=== PATIENT | male | born 1940 | race Caucasian/White ===

== ENCOUNTER 2023-04-01 18:41 | Inpatient (IN) | payer OTHER ==
[~2023-04-01] VITALS: Ht 175.3 cm; Wt 60.2 kg
[2023-04-01] MEDS ORDERED: SODIUM CHLORIDE 0.9% 1,000 ML IV ONE (19:15)
[2023-04-01] MEDS ORDERED: ONDANSETRON HCL 4 MG/2 ML VIAL IV ONE (19:15)
[2023-04-01] MEDS ORDERED: IOHEXOL 300 MG/ML 100ML BOTTLE IJ ONE (19:24)
[2023-04-01 19:43] LABS: Basophils # (auto) 0 10 ^3/uL (0-0.2); Basophils % (auto) 0.2 % (0.0-2.0); Eosinophils # (auto) 0.1 10 ^3/uL (0-0.8); Eosinophils % (auto) 1.1 % (0.0-7.0); Hematocrit 31.4 % (41.0-53.0); Hemoglobin 10.5 g/dL (13.5-17.5); Lymphocytes # (auto) 2.7 10 ^3/uL (0.4-5.4); Mean Corpuscular Hemoglobin 31.9 pg (28.0-32.0); Mean Corpuscular Hgb Conc. 33.5 g/dL (32.0-36.0); Mean Corpuscular Volume 95.3 fL (80.0-100.0); Monocytes # (auto) 0.5 10 ^3/uL (0-1.3); Monocytes % (auto) 5.2 % (0.0-12.0); Neutrophils # (auto) 5.6 10 ^3/uL (1.6-8.6); Neutrophils % (auto) 63.5 % (37.0-80.0); Red Blood Cells 3.29 10^6/uL (4.5-5.90); Red Cell Distribution Width 13.1 % (11.8-14.3); White Blood Cell 8.9 10^3/uL (4.4-10.8)
[2023-04-01 20:02] LABS: Albumin 2.7 g/dL (3.4-5.0); BUN/Creatinine Ratio 14.3 (10.0-20.0); Calcium 8.7 mg/dL (8.5-10.1); Potassium 5.2 mmol/L (3.5-5.1)
[2023-04-01 20:14] LABS: Bilirubin, Total 0.8 mg/dL (0.2-1.0); Total Protein 7.8 g/dL (6.4-8.2)
[2023-04-02] MEDS ORDERED: ONDANSETRON HCL 4 MG/2 ML VIAL IV ONE (01:00)
[2023-04-02] MEDS ORDERED: DOCUSATE SOD 100 MG CAP PO PRN (01:00)
[2023-04-02] MEDS ORDERED: HYDROcodone-ACET 5/325MG TAB PO PRN (01:00)
[2023-04-02] MEDS ORDERED: NITROGLYCERIN 0.4 MG SL TAB SL PRN (05:15)
[2023-04-02] MEDS ORDERED: MORPHINE SULFATE INJ 2 MG/ml SYRG IV PRN (05:15)
[2023-04-02] MEDS ORDERED: SODIUM ZIRCONIUM CYCL 10 GM PAK PO ONE ×2 (06:00→06:15)
[2023-04-02] MEDS: ONDANSETRON HCL 4 MG/2 ML VIAL IV PRN ×2 (06:24→12:44)
[2023-04-02] MEDS: ACETAMINOPHEN 325 MG TAB PO PRN (06:25)
[2023-04-02 06:43] LABS: Basophils # (auto) 0 10 ^3/uL (0-0.2); Basophils % (auto) 0.3 % (0.0-2.0); Eosinophils # (auto) 0 10 ^3/uL (0-0.8); Eosinophils % (auto) 0.4 % (0.0-7.0); Hematocrit 30.4 % (41.0-53.0); Hemoglobin 10.2 g/dL (13.5-17.5); Lymphocytes % (auto) 27.4 % (10.0-50.0); Mean Corpuscular Hemoglobin 31.9 pg (28.0-32.0); Mean Corpuscular Hgb Conc. 33.6 g/dL (32.0-36.0); Monocytes # (auto) 0.7 10 ^3/uL (0-1.3); Monocytes % (auto) 6.4 % (0.0-12.0); Neutrophils # (auto) 7.1 10 ^3/uL (1.6-8.6); Neutrophils % (auto) 65.5 % (37.0-80.0); Nucleated Red Blood Cells % 0.1 %; Red Cell Distribution Width 13.2 % (11.8-14.3); White Blood Cell 10.8 10^3/uL (4.4-10.8)
[2023-04-02 07:16] LABS: Potassium 4.4 mmol/L (3.5-5.1)
[2023-04-02 07:30] LABS: Albumin 2.8 g/dL (3.4-5.0); BUN/Creatinine Ratio 14.5 (10.0-20.0); Bilirubin, Total 0.8 mg/dL (0.2-1.0); Total Protein 8.1 g/dL (6.4-8.2)
[2023-04-02 08:03] LABS: Urine Bacteria MOD /hpf (None Seen); Urine Blood 2+ /uL (Negative); Urine Specific Gravity 1.028 (1.001-1.035); Urine WBC 2743 /hpf (0 - 3); Urine WBC Clumps PRESENT /hpf (None Seen)
[2023-04-02] MEDS ORDERED: CEFEPIME 1GM/ 50ML 50 ML IV ONE (12:00)
[2023-04-02] MEDS ORDERED: DEXTROSE (50%) 50ML SYRG IV PRN (12:30)
[2023-04-02] MEDS: ACCU-CHEK COMFORT CURVE STRIP VI SCH ×2 (18:30→23:20)
[2023-04-02] MEDS: InsuLIN REG 1unit/0.01ml Soln (100units/ml) SC SCH ×2 (18:30→23:27)
[2023-04-02 21:03] VITALS: BP 140/66
[2023-04-02] MEDS: CEFEPIME 1GM/ 50ML 50 ML IV SCH (23:05)
[2023-04-03 02:02] VITALS: BP 140/66
[2023-04-03 05:00] VITALS: BP 133/70
[2023-04-03] MEDS: ACCU-CHEK COMFORT CURVE STRIP VI SCH ×3 (05:18→18:00)
[2023-04-03] MEDS: InsuLIN REG 1unit/0.01ml Soln (100units/ml) SC SCH ×3 (05:21→18:00)
[2023-04-03 06:36] LABS: Basophils # (auto) 0 10 ^3/uL (0-0.2); Basophils % (auto) 0.1 % (0.0-2.0); Eosinophils # (auto) 0 10 ^3/uL (0-0.8); Eosinophils % (auto) 0.1 % (0.0-7.0); Hematocrit 30.5 % (41.0-53.0); Hemoglobin 10.3 g/dL (13.5-17.5); Lymphocytes # (auto) 2.4 10 ^3/uL (0.4-5.4); Lymphocytes % (auto) 20.3 % (10.0-50.0); Mean Corpuscular Hemoglobin 31.7 pg (28.0-32.0); Mean Corpuscular Hgb Conc. 33.7 g/dL (32.0-36.0); Mean Corpuscular Volume 94.3 fL (80.0-100.0); Monocytes # (auto) 0.6 10 ^3/uL (0-1.3); Monocytes % (auto) 5.4 % (0.0-12.0); Neutrophils # (auto) 8.8 10 ^3/uL (1.6-8.6); Neutrophils % (auto) 74.1 % (37.0-80.0); Nucleated Red Blood Cells % 0.1 %; Red Blood Cells 3.24 10^6/uL (4.5-5.90); Red Cell Distribution Width 13.3 % (11.8-14.3); White Blood Cell 11.9 10^3/uL (4.4-10.8)
[2023-04-03 07:39] LABS: Albumin 2.7 g/dL (3.4-5.0); Calcium 8.1 mg/dL (8.5-10.1); Potassium 4.3 mmol/L (3.5-5.1)
[2023-04-03 07:42] LABS: BUN/Creatinine Ratio 17.3 (10.0-20.0); Bilirubin, Total 0.7 mg/dL (0.2-1.0); Total Protein 7.6 g/dL (6.4-8.2)
[2023-04-03] MEDS ORDERED: AMLO1TAB22 PO (08:49)
[2023-04-03 09:00] VITALS: BP 126/65
[2023-04-03] MEDS: CEFEPIME 1GM/ 50ML 50 ML IV SCH ×2 (09:48→22:07)
[2023-04-03] MEDS ORDERED: GLIP10TA9 PO (12:16)
[2023-04-03] MEDS ORDERED: B-COCAP34 OR (12:16)
[2023-04-03] MEDS ORDERED: TEMA30CA PO (12:16)
[2023-04-03] MEDS ORDERED: LISI40TA16 PO (12:16)
[2023-04-03] MEDS ORDERED: FINA5TAB4 PO (12:16)
[2023-04-03] MEDS ORDERED: HYDR-4902 PO (12:16)
[2023-04-03] MEDS ORDERED: SIMV40TA18 PO (12:16)
[2023-04-03 13:00] VITALS: BP 91/58
[2023-04-03 17:00] VITALS: BP 150/46
[2023-04-03 22:00] VITALS: BP 120/74
[2023-04-04] MEDS: ACCU-CHEK COMFORT CURVE STRIP VI SCH ×5 (00:32→23:00)
[2023-04-04] MEDS: ACETAMINOPHEN 325 MG TAB PO PRN (04:18)
[2023-04-04 05:00] VITALS: BP 136/61
[2023-04-04] MEDS: InsuLIN REG 1unit/0.01ml Soln (100units/ml) SC SCH ×5 (06:00→22:00)
[2023-04-04 06:39] LABS: INR 1.25 (0.9-1.15); Partial Thromboplastin Time 30.2 SEC (24.5-34.5)
[2023-04-04] MEDS ORDERED: PROPOFOL 10 MG/ML 20 ML IV ONE (08:04)
[2023-04-04] MEDS ORDERED: LIDOCAINE 2% (LOCAL ANESTH.) PF 5ml SDV ONE (08:05)
[2023-04-04 09:00] VITALS: BP 133/59
[2023-04-04] MEDS: PANTOPRAZOLE 40 MG/10 ML VIAL INJ IV SCH ×2 (09:20→23:00)
[2023-04-04] MEDS: CEFEPIME 1GM/ 50ML 50 ML IV SCH ×2 (09:23→23:00)
[2023-04-04] MEDS ORDERED: LACTULOSE 20Gm/30ML SOLN PO SCH (10:00)
[2023-04-04] MEDS: SUCRALFATE 1 GM/10 ML ORAL SUSP PO SCH ×3 (11:34→23:00)
[2023-04-04 13:00] VITALS: BP 137/61
[2023-04-04] MEDS: METOCLOPRAMIDE HCL 5MG/ml INJ 2ml VIAL IV SCH ×2 (13:41→23:00)
[2023-04-04] MEDS ORDERED: DEXTROSE (50%) 50ML SYRG IV PRN (15:00)
[2023-04-04] MEDS ORDERED: FINA5TAB4 PO (15:08)
[2023-04-04] MEDS: ONDANSETRON HCL 4 MG/2 ML VIAL IV PRN (15:24)
[2023-04-04] MEDS: SOD CHL 0.45% 1,000 ML IV SCH (15:25)
[2023-04-04 17:00] VITALS: BP 135/61
[2023-04-04 22:00] VITALS: BP 119/50
[2023-04-04] MEDS: LACTULOSE 20Gm/30ML SOLN PO SCH (23:00)
[2023-04-05] MEDS: SOD CHL 0.45% 1,000 ML IV SCH ×3 (01:00→21:00)
[2023-04-05 05:00] VITALS: BP 131/63
[2023-04-05] MEDS: SUCRALFATE 1 GM/10 ML ORAL SUSP PO SCH ×4 (05:58→22:21)
[2023-04-05] MEDS: METOCLOPRAMIDE HCL 5MG/ml INJ 2ml VIAL IV SCH ×3 (05:58→22:21)
[2023-04-05] MEDS: ACCU-CHEK COMFORT CURVE STRIP VI SCH ×4 (05:59→22:21)
[2023-04-05] MEDS: InsuLIN REG 1unit/0.01ml Soln (100units/ml) SC SCH ×4 (06:16→22:00)
[2023-04-05 09:00] VITALS: BP 136/75
[2023-04-05] MEDS: LACTULOSE 20Gm/30ML SOLN PO SCH ×2 (10:03→22:20)
[2023-04-05] MEDS: CEFEPIME 1GM/ 50ML 50 ML IV SCH ×2 (10:03→22:21)
[2023-04-05] MEDS: PANTOPRAZOLE 40 MG/10 ML VIAL INJ IV SCH ×2 (10:04→22:21)
[2023-04-05] MEDS: FINASTERIDE 5 MG TAB PO SCH (10:04)
[2023-04-05 13:00] VITALS: BP 126/58
[2023-04-05 14:01] LABS: Basophils # (auto) 0 10 ^3/uL (0-0.2); Basophils % (auto) 0.1 % (0.0-2.0); Eosinophils # (auto) 0.1 10 ^3/uL (0-0.8); Eosinophils % (auto) 1.1 % (0.0-7.0); Hematocrit 26.1 % (41.0-53.0); Lymphocytes # (auto) 0.8 10 ^3/uL (0.4-5.4); Lymphocytes % (auto) 11.1 % (10.0-50.0); Mean Corpuscular Hemoglobin 32.6 pg (28.0-32.0); Mean Corpuscular Hgb Conc. 34.5 g/dL (32.0-36.0); Mean Corpuscular Volume 94.6 fL (80.0-100.0); Monocytes # (auto) 0.7 10 ^3/uL (0-1.3); Monocytes % (auto) 9.1 % (0.0-12.0); Neutrophils # (auto) 5.7 10 ^3/uL (1.6-8.6); Neutrophils % (auto) 78.6 % (37.0-80.0); Nucleated Red Blood Cells % 0.1 %; Red Blood Cells 2.76 10^6/uL (4.5-5.90); White Blood Cell 7.2 10^3/uL (4.4-10.8)
[2023-04-05 14:45] LABS: BUN/Creatinine Ratio 21.5 (10.0-20.0); Calcium 7.3 mg/dL (8.5-10.1); Potassium 3.3 mmol/L (3.5-5.1)
[2023-04-05] MEDS ORDERED: POTASSIUM CHLORIDE 40 MEQ, LIDOCAINE 1% (LOCAL ANESTH.) 4 ML in SODIUM CHL 0.9% 250 ML IV ONE (16:30)
[2023-04-05 16:50] VITALS: BP 139/57
[2023-04-05 22:00] VITALS: BP 133/59
[2023-04-06 05:00] VITALS: BP 133/60
[2023-04-06 05:42] LABS: Basophils # (auto) 0 10 ^3/uL (0-0.2); Basophils % (auto) 0.1 % (0.0-2.0); Eosinophils # (auto) 0 10 ^3/uL (0-0.8); Eosinophils % (auto) 0.4 % (0.0-7.0); Hematocrit 25.6 % (41.0-53.0); Hemoglobin 8.9 g/dL (13.5-17.5); Lymphocytes # (auto) 1.6 10 ^3/uL (0.4-5.4); Lymphocytes % (auto) 21.5 % (10.0-50.0); Mean Corpuscular Hemoglobin 32.6 pg (28.0-32.0); Mean Corpuscular Hgb Conc. 34.6 g/dL (32.0-36.0); Mean Corpuscular Volume 94.3 fL (80.0-100.0); Monocytes # (auto) 0.8 10 ^3/uL (0-1.3); Nucleated Red Blood Cells % 0.1 %; Red Blood Cells 2.71 10^6/uL (4.5-5.90); White Blood Cell 7.4 10^3/uL (4.4-10.8)
[2023-04-06 05:54] LABS: BUN/Creatinine Ratio 19.9 (10.0-20.0); Calcium 7.4 mg/dL (8.5-10.1); Phosphorus 1.6 mg/dL (2.5-4.90); Potassium 3.8 mmol/L (3.5-5.1)
[2023-04-06 06:08] LABS: Uric Acid 5.9 mg/dL (3.5-7.2)
[2023-04-06] MEDS: METOCLOPRAMIDE HCL 5MG/ml INJ 2ml VIAL IV SCH ×3 (06:26→21:56)
[2023-04-06] MEDS: SOD CHL 0.45% 1,000 ML IV SCH ×2 (06:26→16:48)
[2023-04-06] MEDS: SUCRALFATE 1 GM/10 ML ORAL SUSP PO SCH ×4 (06:27→21:42)
[2023-04-06] MEDS: InsuLIN REG 1unit/0.01ml Soln (100units/ml) SC SCH ×4 (06:27→22:00)
[2023-04-06] MEDS: ACCU-CHEK COMFORT CURVE STRIP VI SCH ×4 (06:27→21:55)
[2023-04-06 09:00] VITALS: BP 132/71
[2023-04-06] MEDS: LACTULOSE 20Gm/30ML SOLN PO SCH ×2 (09:44→21:41)
[2023-04-06] MEDS: FINASTERIDE 5 MG TAB PO SCH (09:44)
[2023-04-06] MEDS: PANTOPRAZOLE 40 MG/10 ML VIAL INJ IV SCH ×2 (09:44→21:56)
[2023-04-06] MEDS: CEFEPIME 1GM/ 50ML 50 ML IV SCH (09:44)
[2023-04-06 12:40] LABS: Urine Bacteria FEW /hpf (None Seen); Urine Blood 2+ /uL (Negative); Urine Mucus FEW (None Seen); Urine Specific Gravity 1.015 (1.001-1.035); Urine WBC 63 /hpf (0 - 3)
[2023-04-06 13:00] VITALS: BP 125/54
[2023-04-06 15:14] LABS: Protein, Urine 120.5 mg/dL (0.0-11.9)
[2023-04-06 16:32] VITALS: BP 157/47
[2023-04-06] MEDS: ACETAMINOPHEN 325 MG TAB PO PRN (16:51)
[2023-04-06 22:00] VITALS: BP 119/53
[2023-04-06] MEDS: LINEZOLID 600MG/300ML 300 ML IV SCH (22:00)
[2023-04-07] MEDS: SOD CHL 0.45% 1,000 ML IV SCH (03:00)
[2023-04-07 05:00] VITALS: BP 148/66
[2023-04-07] MEDS: SUCRALFATE 1 GM/10 ML ORAL SUSP PO SCH ×4 (06:12→21:48)
[2023-04-07] MEDS: METOCLOPRAMIDE HCL 5MG/ml INJ 2ml VIAL IV SCH ×3 (06:12→21:58)
[2023-04-07] MEDS: ACCU-CHEK COMFORT CURVE STRIP VI SCH ×4 (06:12→21:58)
[2023-04-07] MEDS: InsuLIN REG 1unit/0.01ml Soln (100units/ml) SC SCH ×4 (06:15→21:57)
[2023-04-07 06:32] LABS: Basophils # (auto) 0 10 ^3/uL (0-0.2); Basophils % (auto) 0.2 % (0.0-2.0); Eosinophils # (auto) 0 10 ^3/uL (0-0.8); Eosinophils % (auto) 0.6 % (0.0-7.0); Hematocrit 25.1 % (41.0-53.0); Hemoglobin 8.5 g/dL (13.5-17.5); Lymphocytes # (auto) 2.1 10 ^3/uL (0.4-5.4); Lymphocytes % (auto) 35.9 % (10.0-50.0); Mean Corpuscular Hemoglobin 32.3 pg (28.0-32.0); Mean Corpuscular Volume 94.9 fL (80.0-100.0); Monocytes # (auto) 0.6 10 ^3/uL (0-1.3); Monocytes % (auto) 9.4 % (0.0-12.0); Neutrophils # (auto) 3.2 10 ^3/uL (1.6-8.6); Neutrophils % (auto) 53.9 % (37.0-80.0); Nucleated Red Blood Cells % 0.2 %; Red Blood Cells 2.64 10^6/uL (4.5-5.90); Red Cell Distribution Width 12.9 % (11.8-14.3); White Blood Cell 5.9 10^3/uL (4.4-10.8)
[2023-04-07 06:46] LABS: Potassium 3.6 mmol/L (3.5-5.1)
[2023-04-07 09:00] VITALS: BP 135/63
[2023-04-07] MEDS: PANTOPRAZOLE 40 MG/10 ML VIAL INJ IV SCH ×2 (09:58→21:48)
[2023-04-07] MEDS: LINEZOLID 600MG/300ML 300 ML IV SCH ×2 (09:58→21:54)
[2023-04-07] MEDS: LACTULOSE 20Gm/30ML SOLN PO SCH ×2 (09:58→21:58)
[2023-04-07] MEDS: FINASTERIDE 5 MG TAB PO SCH (09:58)
[2023-04-07] MEDS: ENSURE CLEAR Apple 8oz Carton PO SCH ×2 (12:00→18:24)
[2023-04-07 13:00] VITALS: BP 147/64
[2023-04-07 16:22] VITALS: BP 132/68
[2023-04-07] MEDS: D5W/SOD CHLO 0.9% 1,000 ML IV SCH ×2 (18:22→23:20)
[2023-04-07 22:00] VITALS: BP 142/67
[2023-04-08] MEDS ORDERED: SODIUM FERR GLUC 62.5MG/5ML 125 MG in SODIUM CHL 0.9% 100 ML IV ONE ×2 (00:30→08:00)
[2023-04-08 05:00] VITALS: BP 128/65
[2023-04-08] MEDS: METOCLOPRAMIDE HCL 5MG/ml INJ 2ml VIAL IV SCH ×3 (05:24→22:00)
[2023-04-08] MEDS: InsuLIN REG 1unit/0.01ml Soln (100units/ml) SC SCH ×4 (06:10→22:00)
[2023-04-08] MEDS: ACCU-CHEK COMFORT CURVE STRIP VI SCH ×4 (06:12→22:39)
[2023-04-08] MEDS: SUCRALFATE 1 GM/10 ML ORAL SUSP PO SCH ×4 (06:22→22:00)
[2023-04-08] MEDS: ENSURE CLEAR Apple 8oz Carton PO SCH ×3 (08:00→18:00)
[2023-04-08 09:00] VITALS: BP 135/62
[2023-04-08] MEDS: LACTULOSE 20Gm/30ML SOLN PO SCH ×2 (09:38→22:00)
[2023-04-08] MEDS: FINASTERIDE 5 MG TAB PO SCH (09:38)
[2023-04-08] MEDS: PANTOPRAZOLE 40 MG/10 ML VIAL INJ IV SCH ×2 (09:39→22:21)
[2023-04-08] MEDS: LINEZOLID 600MG/300ML 300 ML IV SCH ×2 (11:33→22:20)
[2023-04-08 13:00] VITALS: BP 150/66
[2023-04-08] MEDS: D5W/SOD CHLO 0.9% 1,000 ML IV SCH (16:54)
[2023-04-08 17:00] VITALS: BP 129/60
[2023-04-08 22:00] VITALS: BP 140/66
[2023-04-09] MEDS: D5W/SOD CHLO 0.9% 1,000 ML IV SCH (01:13)
[2023-04-09 05:00] VITALS: BP 143/70
[2023-04-09] MEDS: ACCU-CHEK COMFORT CURVE STRIP VI SCH (05:55)
[2023-04-09] MEDS: SUCRALFATE 1 GM/10 ML ORAL SUSP PO SCH (05:58)
[2023-04-09] MEDS: METOCLOPRAMIDE HCL 5MG/ml INJ 2ml VIAL IV SCH (05:58)
[2023-04-09] MEDS: InsuLIN REG 1unit/0.01ml Soln (100units/ml) SC SCH (06:06)
[2023-04-09 07:30] VITALS: BP 144/67
[2023-04-09] MEDS: ENSURE CLEAR Apple 8oz Carton PO SCH (08:18)
[2023-04-09 09:00] VITALS: BP 144/67
[2023-04-09 09:02] VITALS: BP 144/67
[2023-04-09] MEDS: LACTULOSE 20Gm/30ML SOLN PO SCH (09:46)
[2023-04-09] MEDS: LINEZOLID 600MG/300ML 300 ML IV SCH (09:49)
[2023-04-09] MEDS: PANTOPRAZOLE 40 MG/10 ML VIAL INJ IV SCH (09:49)
[2023-04-09] MEDS: FINASTERIDE 5 MG TAB PO SCH (09:51)
== END 2023-04-09 10:30 | disposition hospice, inpatient (51) | DRG 871 ==
LOC: ER 18:41 → EDBD 18:41 → OVERFLOW 04-02 05:11 → WEST WING 04-02 19:58
PROVIDERS: ADMIT Nurse Practitioner Family; ATTEND Nurse Practitioner Acute Care
PROC: 0DB68ZX Excision of Stomach, Via Natural or Artificial Opening Endoscopic, Diagnostic (ICD-10-PCS; 2023-04-04)
PROC: 0DB58ZX Excision of Esophagus, Via Natural or Artificial Opening Endoscopic, Diagnostic (ICD-10-PCS; 2023-04-04)
PROC: 0DB98ZX Excision of Duodenum, Via Natural or Artificial Opening Endoscopic, Diagnostic (ICD-10-PCS; principal; 2023-04-04 08:11)
DX: A41.02 Sepsis due to Methicillin resistant Staphylococcus aureus (principal); E43 Unspecified severe protein-calorie malnutrition; N17.0 Acute kidney failure with tubular necrosis; K22.10 Ulcer of esophagus without bleeding; K52.89 Other specified noninfective gastroenteritis and colitis; E87.5 Hyperkalemia; I10 Essential (primary) hypertension; D64.9 Anemia, unspecified; N40.0 Benign prostatic hyperplasia without lower urinary tract symptoms; N30.90 Cystitis, unspecified without hematuria; K26.9 Duodenal ulcer, unspecified as acute or chronic, without hemorrhage or perforation; F03.90 Unspecified dementia, unspecified severity, without behavioral disturbance, psychotic disturbance, mood disturbance, and anxiety; K31.84 Gastroparesis; K29.70 Gastritis, unspecified, without bleeding; K44.9 Diaphragmatic hernia without obstruction or gangrene; R65.20 Severe sepsis without septic shock; N14.11 Contrast-induced nephropathy; T50.8X5A Adverse effect of diagnostic agents, initial encounter; K59.00 Constipation, unspecified; E11.43 Type 2 diabetes mellitus with diabetic autonomic (poly)neuropathy; Z79.899 Other long term (current) drug therapy; Y92.89 Other specified places as the place of occurrence of the external cause
CPT/HCPCS: 36415; 71045; 74177; 76775; 80048; 80053; 81001; 82570; 82962; 83690; 84100; 84156; 84300; 84484; 84550; 85025; 85610; 85730; 86850; 86900; 86901; 87040; 87081; 87086; 87186; 93005; C9113; G0378; J1815; J2001; J2405; J2704; J7042